=== PATIENT | female | born 1985 | race Caucasian/White ===

== ENCOUNTER 2017-01-10 15:03 | Emergency (ER) | payer MEDICAID ==
[~2017-01-10] VITALS: Ht 139.7 cm; Wt 54.4 kg
[~2017-01-10 15:03] MED LIST: ACHD5005 PO; CEPH500C PO; DCS100C PO; DOCU100C37 PO; FERR-57 PO; IBP800T PO; IBUP-1780 PO; OXYC-12 PO; OXYC-465 PO; PREN1TAB39 PO
[2017-01-10] MEDS ORDERED: TRAM50TA2 PO (15:17)
[2017-01-10] MEDS ORDERED: LIDOCAINE 1% INJ 20 ML (XYLOCAINE) VIAL ONE (16:06)
[2017-01-10] MEDS ORDERED: LIDOCAINE 1% INJ 20 ML (XYLOCAINE) VIAL INJ STA (16:11)
[2017-01-10] MEDS ORDERED: AMOX-358 PO (17:17)
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
[2017-01-10 17:43] VITALS: BP 142/102
--- OUTSIDE RECORDS SUMMARY | 2017-01-10 21:17 | XMS REPORT ---
Author Author LEAH AVILA [facility] Address [address] [place] [address] Care Team Providers Care Insurance Compliance Analyst Name Role Phone [place] LEAH Unavailable PROBLEMS Type Condition ICD9-CM Code [id number] Code Onset Dates Condition Status SNOMED Code Problem Other chronic pain G89.29 Active 93347582 Problem Lumbago with sciatica, right side M54.41 Active 650017958 Problem Normal in multigravida in third trimester Z34.83 Active 12733812 ALLERGIES Substance Reaction Event Type Date Status Latex Unknown Drug Allergy Mar, Active SOCIAL HISTORY No smoking Hx information available PLAN OF CARE VITAL SIGNS Height 55 in 2016-04-06 Weight 111.5 lbs 2016-04-06 Temperature 98.8 degrees Fahrenheit 2016-04-06 Heart Rate 84 bpm 2016-04-06 Respiratory Rate 20 2016-04-06 BMI 25.91 kg/m2 2016-04-06 Blood pressure systolic 130 mmHg 2016-04-06 Blood pressure diastolic 90 mmHg 2016-04-06 MEDICATIONS Medication Instructions Dosage Frequency Start Date End Date Duration Status Naproxen 500 MG Orally Twice a day 1 tablet 12h Mar, Apr, 30 day(s) Active Ferrous Sulfate 325 (65 Fe) MG Orally Once a day 1 tablet 24h Active [place] 5-325 MG Orally 3 times a day 1 tablet as needed 8h Mar, Active RESULTS No Results PROCEDURES Procedure Date Ordered Related Diagnosis Body Site Office Visit, Est Pt., Level 3 Apr 06, 2016 IMMUNIZATIONS No Known Immunizations
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
--- OUTSIDE RECORDS SUMMARY | 2017-01-10 21:17 | XMS REPORT ---
Author Author CHRISTIANO MCCLAIN [facility] Address [address] [place] [address] Care Team Providers Care Forest Fire Officer Name Role Phone CHRISTIANO MCCLAIN Unavailable PROBLEMS Type Condition ICD9-CM Code [id number] Code Onset Dates Condition Status SNOMED Code Problem Other chronic pain G89.29 Active 03528950 Problem Lumbago with sciatica, right side M54.41 Active 731295324 Problem Normal in multigravida in third trimester Z34.83 Active 02934696 ALLERGIES Substance Reaction Event Type Date Status Latex Unknown Drug Allergy Feb, Active SOCIAL HISTORY No smoking Hx information available PLAN OF CARE Activity Details Follow Up prn Reason: VITAL SIGNS Height 55 in 2016-03-23 Weight 108.6 lbs 2016-03-23 Temperature 98.4 degrees Fahrenheit 2016-03-23 Heart Rate 84 bpm 2016-03-23 Respiratory Rate 18 2016-03-23 BMI 25.24 kg/m2 2016-03-23 Blood pressure systolic 124 mmHg 2016-03-23 Blood pressure diastolic 76 mmHg 2016-03-23 MEDICATIONS Medication Instructions Dosage Frequency Start Date End Date Duration Status Vitamin 27-0.8 MG Active Hydrocodone-Acetaminophen 5-325 MG Orally every 6 hrs 1 tablet as needed 6h Feb, Mar, 7 days Active PredniSONE 50 MG Orally Once a day 1 tablet 24h Feb, Mar, 5 days Active RESULTS No Results PROCEDURES Procedure Date Ordered Related Diagnosis Body Site Office Visit, Est Pt., Level 3 Mar 23, 2016 IMMUNIZATIONS No Known Immunizations
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
--- OUTSIDE RECORDS SUMMARY | 2017-01-10 21:17 | XMS REPORT ---
Author Author LEAH AVILA [facility] Address [address] [place] [address] Care Team Providers Care Log Buyer Name Role Phone LEAH AVILA Unavailable PROBLEMS Type Condition ICD9-CM Code [id number] Code Onset Dates Condition Status SNOMED Code Problem Other chronic pain G89.29 Active 13235565 Problem Lumbago with sciatica, right side M54.41 Active 116990384 Problem Normal in multigravida in third trimester Z34.83 Active 59075081 ALLERGIES No Information SOCIAL HISTORY Never Assessed PLAN OF CARE VITAL SIGNS MEDICATIONS Medication Instructions Dosage Frequency Start Date End Date Duration Status [place] 5-325 MG Orally 3 times a day 1 tablet as needed 8h 13 Apr, 2016 Active RESULTS No Results PROCEDURES No Known procedures IMMUNIZATIONS No Known Immunizations MEDICAL (GENERAL) HISTORY Type Description Date Medical History chronic pain-low back Medical History carpal tunnel Medical History chronic R hip pain Surgical History section x3 Surgical History ovarian cysts removal Hospitalization History child
--- OUTSIDE RECORDS SUMMARY | 2017-01-10 21:17 | XMS REPORT ---
Author Author LEAH AVILA [facility] Address [address] [place] [address] Care Team Providers Care Manager Risk Name Role Phone LEAH AVILA Unavailable PROBLEMS Type Condition ICD9-CM Code [id number] Code Onset Dates Condition Status SNOMED Code Problem Other chronic pain G89.29 Active 33813335 Problem Lumbago with sciatica, right side M54.41 Active 931384428 Problem Normal in multigravida in third trimester Z34.83 Active 87329207 ALLERGIES No Information SOCIAL HISTORY Never Assessed PLAN OF CARE VITAL SIGNS MEDICATIONS Medication Instructions Dosage Frequency Start Date End Date Duration Status [place] 5-325 MG Orally 3 times a day 1 tablet as needed 8h May, Active RESULTS No Results PROCEDURES No Known procedures IMMUNIZATIONS No Known Immunizations MEDICAL (GENERAL) HISTORY Type Description Date Medical History chronic pain-low back Medical History carpal tunnel Medical History chronic R hip pain Surgical History section x3 Surgical History ovarian cysts removal Hospitalization History child
--- OUTSIDE RECORDS SUMMARY | 2017-01-10 21:17 | XMS REPORT ---
Author DONNY Keen [facility] [employer] Address Unknown Phone Unavailable Care Team Providers Care Extension Service Specialist Name Role Phone DONNY MURDOCK CP Unavailable Allergies No Known Allergies Problems Problem Type Condition Code Onset Dates Condition Status Assessment Encounter for immunization Z23 Active Problem Normal in multigravida in second trimester Z34.82 Active Problem S/P repeat low transverse Z98.89 Active Problem Normal in multigravida in third trimester Z34.83 Active Assessment 30 weeks gestation of Z3A.30 Active Assessment Dorsalgia, unspecified M54.9 Active Problem Smoking (tobacco) complicating , second trimester O99.332 Active Assessment Normal in multigravida in third trimester Z34.83 Active Medications Medication Code System Code Instructions Start Date End Date Status Dosage Vitamin [facility] [address]5464-85911 27-0.8 MG Orally not defined Hydrocodone-Acetaminophen [facility] [address]-25 5-325 MG Orally three times per week as needed pain. Must last 30 days September 12, 2015 1 tablet Ferrous Sulfate [facility] [address]-19 325 (65 Fe) MG Orally Once a day 1 tablet Procedures Procedure Coding System Code Date Office Visit, Est Pt., Level 3 CPT-4 92973 Oct 31, 2015 TDAP (BOOSTRIX) CPT-4 79207 Oct 31, 2015 URINE-NO MICRO CPT-4 94592 Oct 31, 2015 SINGLE IMMUNIZATION ADMIN CPT-4 60373 Oct 31, 2015 Vital Signs Date/Time: Oct 31, 2015 Cardiac Monitoring Heart Rate 82 bpm Weight 110.3 lbs Height 55 in BMI 25.636 Index Blood Pressure Diastolic 69 mmHg Blood Pressure Systolic 135 mmHg Results No Known Results Immunizations Vaccine Administration Date TDAP (BOOSTRIX) Oct 31, 2015 Summary Purpose [employer] Submission
--- OUTSIDE RECORDS SUMMARY | 2017-01-10 21:18 | XMS REPORT ---
Author Author DONNY MURDOCK [employer] Address Unknown Phone Unavailable Care Team Providers Care Tattoo Designer Name Role Phone DONNY MURDOCK CP Unavailable Allergies, Adverse Reactions, Alerts Substance Reaction Event Type Latex Info Not Available Drug Allergy Problems Problem Type Condition Code Onset Dates Condition Status Problem Normal in multigravida in second trimester Z34.82 Active Problem S/P repeat low transverse Z98.89 Active Problem Normal in multigravida in third trimester Z34.83 Active Assessment 37 weeks gestation of Z3A.37 Active Assessment Encounter for immunization Z23 Active Problem Smoking (tobacco) complicating , second trimester O99.332 Active Assessment Normal in multigravida in third trimester Z34.83 Active Medications Medication Code System Code Instructions Start Date End Date Status Dosage Ferrous Sulfate [facility] [address]-67 325 (65 Fe) MG Orally Once a day 1 tablet Vitamin [facility] 56591-10066 27-0.8 MG Orally not defined Procedures Procedure Coding System Code Date Office Visit, Est Pt., Level 3 CPT-4 59040 Dec 19, 2015 FLUARIX QUAD P-FREE 3 AND UP .50 2015 CPT-4 05516 Dec 19, 2015 URINE-NO MICRO CPT-4 71738 Dec 19, 2015 SINGLE IMMUNIZATION ADMIN CPT-4 51722 Dec 19, 2015 Vital Signs Date/Time: Dec 19, 2015 Cardiac Monitoring Heart Rate 90 bpm Weight 112 lbs Height 55 in BMI 26.031 Index Blood Pressure Diastolic 72 mmHg Blood Pressure Systolic 128 mmHg Results No Known Results Immunizations Vaccine Administration Date FLUARIX QUAD P-FREE 3 AND UP .50 2015Dec 19, 2015 Summary Purpose [employer]ClinicalWorks Submission
--- OUTSIDE RECORDS SUMMARY | 2017-01-10 21:18 | XMS REPORT | Continuity of Care Document ---
Author Author [facility] Address Unknown Phone Unavailable Allergies Medications Problems Date Dx Coded Attending Type Code Diagnosis Diagnosed By 10/07/2007 LEAH AVILA APRN V22.0 Pc Normal First 10/07/2007 V22.0 Pc Normal First 10/07/2007 DONNY MURDOCK DO V22.0 Pc Normal First 10/07/2007 LEAH AVILA APRN V22.0 Pc Normal First 10/07/2007 LEAH AVILA APRN V22.0 Pc Normal First 10/07/2007 LEAH AVILA APRN V22.0 Pc Normal First 01/06/2009 LEAH AVILA APRN 553.9 HERNIA WITHOUT MENTION OF OBSTRUCTION OR GANGRENE, OF UNSPECIFIED SITE 01/06/2009 553.9 HERNIA WITHOUT MENTION OF OBSTRUCTION OR GANGRENE, OF UNSPECIFIED SITE 01/06/2009 DONNY MURDOCK DO 553.9 HERNIA WITHOUT MENTION OF OBSTRUCTION OR GANGRENE, OF UNSPECIFIED SITE 01/06/2009 LEAH AVILA APRN 553.9 HERNIA WITHOUT MENTION OF OBSTRUCTION OR GANGRENE, OF UNSPECIFIED SITE 01/06/2009 LEAH AVILA APRN 553.9 HERNIA WITHOUT MENTION OF OBSTRUCTION OR GANGRENE, OF UNSPECIFIED SITE 01/06/2009 LEAH AVILA APRN 553.9 HERNIA WITHOUT MENTION OF OBSTRUCTION OR GANGRENE, OF UNSPECIFIED SITE 09/12/2009 LEAH AVILA APRN 724.5 BACKACHE UNSPECIFIED 09/12/2009 724.5 BACKACHE UNSPECIFIED 09/12/2009 DONNY MURDOCK DO 724.5 BACKACHE UNSPECIFIED 09/12/2009 LEAH AVILA APRN 724.5 BACKACHE UNSPECIFIED 09/12/2009 ELAH AVILA APRN 724.5 BACKACHE UNSPECIFIED 09/12/2009 LEAH AVILA APRN 724.5 BACKACHE UNSPECIFIED 12/19/2009 [employer] INS[employer] ANALYST, LEAH T 724.4 BACK PAIN WITH RADIATION 12/19/2009 724.4 BACK PAIN WITH RADIATION 12/19/2009 MURDOCK DO, DONNY K 724.4 BACK PAIN WITH RADIATION 12/19/2009 LEAH AVILA APRN T 724.4 BACK PAIN WITH RADIATION 12/19/2009 LEAH AVILA APRN T 724.4 BACK PAIN WITH RADIATION 12/19/2009 LEAH AVILA APRN T 724.4 BACK PAIN WITH RADIATION 03/13/2010 LEAH AVILA APRN 784.0 HEADACHE 03/13/2010 784.0 HEADACHE 03/13/2010 MURDOCK DO, DONNY K 784.0 HEADACHE 03/13/2010 LEAH AVILA APRN T 784.0 HEADACHE 03/13/2010 LEAH AVILA APRN 784.0 HEADACHE 03/13/2010 LEAH AVILA APRN 784.0 HEADACHE 06/02/2010 LEAH AVILA APRN 724.2 BACK PAIN, LOWER 06/02/2010 724.2 BACK PAIN, LOWER 06/02/2010 MURDOCK DO, DONNY K 724.2 BACK PAIN, LOWER 06/02/2010 LEAH AVILA APRN 724.2 BACK PAIN, LOWER 06/02/2010 LEAH AVILA APRN T 724.2 BACK PAIN, LOWER 06/02/2010 LEAH AVILA APRN 724.2 BACK PAIN, LOWER 03/30/2011 LEAH AVILA APRN V04.81 FLU DX (3 YRS AND ABOVE, IM) 03/30/2011 LEAH AVILA APRN V22.1 , Normal Other 03/30/2011 V04.81 FLU DX (3 YRS AND ABOVE, IM) 03/30/2011 V22.1 , Normal Other 03/30/2011 MURDOCK DO, DONNY K V04.81 FLU DX (3 YRS AND ABOVE, IM) 03/30/2011 MURDOCK DO, DONNY K V22.1 , NORMAL OTHER 03/30/2011 LEAH AVILA APRN V04.81 FLU DX (3 YRS AND ABOVE, IM) 03/30/2011 LEAH AVILA APRN V22.1 , NORMAL OTHER 03/30/2011 LEAH AVILA APRN V04.81 FLU DX (3 YRS AND ABOVE, IM) 03/30/2011 LEAH AVILA APRN V22.1 , NORMAL OTHER 03/30/2011 LEAH AVILA APRN V04.81 FLU DX (3 YRS AND ABOVE, IM) 03/30/2011 LEAH AVILA APRN V22.1 , Normal Other 04/20/2011 LEAH AVILA APRN 616.10 Vaginitis Vulvovaginitis Unspecified 04/20/2011 LEAH AVILA APRN V74.5 Std Screen 04/20/2011 LEAH AVILA APRN V76.2 Cervical Cancer Screening (pap Smear) 04/20/2011 616.10 Vaginitis Vulvovaginitis Unspecified 04/20/2011 V74.5 Std Screen 04/20/2011 V76.2 Cervical Cancer Screening (pap Smear) 04/20/2011 DONNY MURDOCK DO 616.10 Vaginitis Vulvovaginitis Unspecified 04/20/2011 DONNY MURDOCK DO V74.5 Std Screen 04/20/2011 DONNY MURDOCK DO V76.2 Cervical Cancer Screening (pap Smear) 04/20/2011 LEAH AVILA APRN 616.10 Vaginitis Vulvovaginitis Unspecified 04/20/2011 LEAH AVILA APRN V74.5 Std Screen 04/20/2011 LEAH AVILA APRN V76.2 Cervical Cancer Screening (pap Smear) 04/20/2011 LEAH AVILA APRN 616.10 Vaginitis Vulvovaginitis Unspecified 04/20/2011 LEAH AVILA APRN V74.5 Std Screen 04/20/2011 LEAH AVILA APRN V76.2 Cervical Cancer Screening (pap Smear) 04/20/2011 LEAH AVILA APRN 616.10 Vaginitis Vulvovaginitis Unspecified 04/20/2011 LEAH AVILA APRN V74.5 Std Screen 04/20/2011 LEAH AVILA APRN V76.2 Cervical Cancer Screening (pap Smear) 05/07/2011 LEAH AVILA APRN 654.20 PREVIOUS 05/07/2011 654.20 PREVIOUS 05/07/2011 DONNY MURDOCK DO 654.20 PREVIOUS 05/07/2011 LEAH AVILA APRN 654.20 PREVIOUS 05/07/2011 LEAH AVILA APRN 654.20 PREVIOUS 05/07/2011 LEAH AVILA APRN 654.20 PREVIOUS 07/25/2011 LEAH AVILA APRN 616.10 Vaginitis Vulvovaginitis Unspecified 07/25/2011 LEAH AVILA APRN 788.41 Urinary Frequency 07/25/2011 616.10 Vaginitis Vulvovaginitis Unspecified 07/25/2011 788.41 Urinary Frequency 07/25/2011 MURDOCK DORITUA K 616.10 Vaginitis Vulvovaginitis Unspecified 07/25/2011 MURDOCK DO, DONNY K 788.41 Urinary Frequency 07/25/2011 LEAH AVILA APRN 616.10 Vaginitis Vulvovaginitis Unspecified 07/25/2011 LEAH AVILA APRN 788.41 Urinary Frequency 07/25/2011 LEAH AVILA APRN 616.10 Vaginitis Vulvovaginitis Unspecified 07/25/2011 LEAH AVILA APRN 788.41 Urinary Frequency 07/25/2011 LEAH AVILA APRN 616.10 Vaginitis Vulvovaginitis Unspecified 07/25/2011 LEAH AVILA APRN 788.41 Urinary Frequency 08/27/2011 LEAH AVILA APRN V77.1 Diabetes Screening 08/27/2011 LEAH AVILA APRN V78.0 Anemia Screening 08/27/2011 V77.1 Diabetes Screening 08/27/2011 V78.0 Anemia Screening 08/27/2011 DONNY MURDOCK DO V77.1 Diabetes Screening 08/27/2011 DONNY MURDOCK DO K V78.0 Anemia Screening 08/27/2011 LEAH AVILA APRN V77.1 Diabetes Screening 08/27/2011 LEAH AVILA APRN V78.0 Anemia Screening 08/27/2011 LEAH AVILA APRN V77.1 Diabetes Screening 08/27/2011 LEAH AVILA APRN V78.0 Anemia Screening 08/27/2011 LEAH AVILA APRN V77.1 Diabetes Screening 08/27/2011 LEAH AVILA APRN V78.0 Anemia Screening 09/10/2011 LEAH AVILA APRN 648.20 COMPL OF - ANEMIA 09/10/2011 648.20 COMPL OF - ANEMIA 09/10/2011 MURDOCK DORITUA K 648.20 COMPL OF - ANEMIA 09/10/2011 LEAH AVILA APRN 648.20 COMPL OF - ANEMIA 09/10/2011 LEAH AVILA APRN 648.20 COMPL OF - ANEMIA 09/10/2011 LEAH AVILA APRN 648.20 COMPL OF - ANEMIA 09/18/2011 LEAH AVILA APRN 665.93 UNSPECIFIED OBSTETRICAL TRAUMA ANTEPARTUM 09/18/2011 665.93 UNSPECIFIED OBSTETRICAL TRAUMA ANTEPARTUM 09/18/2011 DONNY MURDOCK DO 665.93 UNSPECIFIED OBSTETRICAL TRAUMA ANTEPARTUM 09/18/2011 LEAH AVILA APRN 665.93 UNSPECIFIED OBSTETRICAL TRAUMA ANTEPARTUM 09/18/2011 LEAH AVILA APRN 665.93 UNSPECIFIED OBSTETRICAL TRAUMA ANTEPARTUM 09/18/2011 LEAH AVILA APRN 665.93 UNSPECIFIED OBSTETRICAL TRAUMA ANTEPARTUM 09/19/2011 LEAH AVILA APRN 310.2 POSTCONCUSSION SYNDROME 09/19/2011 310.2 POSTCONCUSSION SYNDROME 09/19/2011 DONNY MURDOCK DO 310.2 POSTCONCUSSION SYNDROME 09/19/2011 LEAH AVILA APRN 310.2 POSTCONCUSSION SYNDROME 09/19/2011 LEAH AVILA APRN 310.2 POSTCONCUSSION SYNDROME 09/19/2011 LEAH AVILA APRN 310.2 POSTCONCUSSION SYNDROME 07/15/2012 727.49 OTHER GANGLION AND CYST OF SYNOVIUM TENDON AND BURSA 07/15/2012 DONNY MURDOCK DO 727.49 OTHER GANGLION AND CYST OF SYNOVIUM TENDON AND BURSA 07/15/2012 LEAH AVILA APRN 727.49 OTHER GANGLION AND CYST OF SYNOVIUM TENDON AND BURSA 07/15/2012 LEAH AVILA APRN 727.49 OTHER GANGLION AND CYST OF SYNOVIUM TENDON AND BURSA 09/28/2013 LEAH AVILA APRN 354.0 CARPAL TUNNEL SYNDROME 09/28/2013 LEAH AVILA APRN 354.0 CARPAL TUNNEL SYNDROME Procedures Code Description Performed By Performed On Neurology Jamey Copeland 09/28/2013 ORTHOPJEREMIAS SAWYER 09/28/2013 Results Encounters ACCT No. Visit Date/Time Discharge Status Pt. Type Provider Facility Loc./Unit Complaint [id number] 05/07/2014 16:32:00 05/07/2014 23: 59:59 CLS Outpatient LEAH AVILA APRN [id number] 09/28/2013 11:09:00 09/28/2013 23: 59:59 CLS Outpatient LEAH AVILA APRN [id number] 12/29/2012 09:07:00 12/29/2012 23: 59:59 CLS Outpatient COLLETTE DONNY GLASGOW Rui [id number] 02/20/2012 18:06:00 02/20/2012 23: 59:59 CLS Outpatient LEAH AVILA APRN [id number] 12/20/2011 09:34:00 12/20/2011 23:59 :59 CLS Outpatient LEAH AVILA APRN [id number] 07/15/2012 14:13:00 Document Registration
--- OUTSIDE RECORDS SUMMARY | 2017-01-10 21:18 | XMS REPORT ---
Author DONNY Keen [facility] eClinicalWorks Address Unknown Phone Unavailable Care Team Providers Care Ct Scan Tech Name Role Phone DONNY MURDOCK CP Unavailable Allergies No Known Allergies Problems Problem Type Condition Code Onset Dates Condition Status Assessment Other specified related conditions, third trimester O26.893 Active Assessment S/P repeat low transverse Z98.89 Active Problem Normal in multigravida in second trimester Z34.82 Active Problem S/P repeat low transverse Z98.89 Active Problem Normal in multigravida in third trimester Z34.83 Active Assessment Normal in multigravida in third trimester Z34.83 Active Assessment Dorsalgia, unspecified M54.9 Active Problem Smoking (tobacco) complicating , second trimester O99.332 Active Assessment Smoking (tobacco) complicating , second trimester O99.332 Active Medications Medication Code System Code Instructions Start Date End Date Status Dosage Hydrocodone-Acetaminophen [facility] [address]-43 5-325 MG Orally three times per week as needed pain. Must last 30 days September 12, 2015 1 tablet Ferrous Sulfate [facility] [address]-03 325 (65 Fe) MG Orally Once a day 1 tablet Vitamin [facility] 43575-63573 27-0.8 MG Orally not defined Procedures Procedure Coding System Code Date DRUG SCREEN NON TLC DEVICES CPT-4 82619 October 10, 2015 URINE-NO MICRO CPT-4 69051 October 10, 2015 [facility]PT-4 NOBLL October 10, 2015 VENIPUNCT, ROUTINE* CPT-4 30758 October 10, 2015 Office Visit, Est Pt., Level 3 CPT-4 75944 October 10, 2015 Vital Signs Date/Time: October 10, 2015 Blood Pressure Systolic 118 mmHg Weight 111.6 lbs Height 55 in Blood Pressure Diastolic 70 mmHg Results No Known Results Summary Purpose eClinicalWorks Submission
--- OUTSIDE RECORDS SUMMARY | 2017-01-10 21:18 | XMS REPORT ---
Author Author DONNY MURDOCK [facility] Address [address] [place] [address] Care Team Providers Care Entry Level Sales Consultant Name Role Phone DONNY MURDOCK Unavailable PROBLEMS Type Condition ICD9-CM Code [id number] Code Onset Dates Condition Status SNOMED Code Problem Normal in multigravida in third trimester Z34.83 Active 63329718 Problem Normal in multigravida in second trimester Z34.82 Active 86813697 Assessment Normal in multigravida in third trimester Z34.83 Oct, Active 02953748 Assessment 34 weeks gestation of Z3A.34 Oct, Active 75079434 Problem S/P repeat low transverse Z98.89 Active 437960337 Problem Smoking (tobacco) complicating , second trimester O99.332 Active 589733666 ALLERGIES Substance Reaction Event Type Date Status Latex Unknown Drug Allergy Oct, Active SOCIAL HISTORY No smoking Hx information available PLAN OF CARE VITAL SIGNS Height 55 in 2015-11-23 Weight 113.6 lbs 2015-11-23 Heart Rate 84 bpm 2015-11-23 Respiratory Rate 18 2015-11-23 BMI 26.403 kg/m2 2015-11-23 Blood pressure systolic 124 mmHg 2015-11-23 Blood pressure diastolic 76 mmHg 2015-11-23 MEDICATIONS Medication Instructions Dosage Frequency Start Date End Date Duration Status Ferrous Sulfate 325 (65 Fe) MG Orally Once a day 1 tablet 24h Active Vitamin 27-0.8 MG Active Hydrocodone-Acetaminophen 5-325 MG Orally three times per week as needed pain. Must last 30 days 1 tablet Aug, Active RESULTS Name Result Date Reference Range UA OB DIP (IN HOUSE) 2015-11-23 Glucose negative Protein negative PROCEDURES Procedure Date Ordered Related Diagnosis Body Site URINE-NO MICRO Nov 23, 2015 Office Visit, Est Pt., Level 3 Nov 23, 2015 IMMUNIZATIONS No Known Immunizations
--- OUTSIDE RECORDS SUMMARY | 2017-01-10 21:18 | XMS REPORT ---
Author LEAH Lewis [facility] e[employer] Address Unknown Phone Unavailable Care Team Providers Care Entry Level Account Executive Name Role Phone LEAH AVILA CP Unavailable [...]
--- OUTSIDE RECORDS SUMMARY | 2017-01-10 21:18 | XMS REPORT ---
Author Author DONNY MURDOCK [facility] Address [address] [place] [address] Care Team Providers Care Head Of Geography Name Role Phone DONNY MURDOCK Unavailable PROBLEMS Type Condition ICD9-CM Code [id number] Code Onset Dates Condition Status SNOMED Code Problem Normal in multigravida in third trimester Z34.83 Active 60410531 Problem Normal in multigravida in second trimester Z34.82 Active 31830834 Problem S/P repeat low transverse Z98.89 Active 957308777 Problem Smoking (tobacco) complicating , second trimester O99.332 Active 554293065 ALLERGIES No Known Allergies SOCIAL HISTORY No smoking Hx information available PLAN OF CARE VITAL SIGNS MEDICATIONS Unknown Medications RESULTS No Results PROCEDURES No Known procedures IMMUNIZATIONS No Known Immunizations
--- OUTSIDE RECORDS SUMMARY | 2017-01-10 21:18 | XMS REPORT ---
Author LEAH Lewis Organization [employer] Address Unknown Phone Unavailable Care Team Providers Care Digital Program Manager Name Role Phone LEAH AVILA CP Unavailable Allergies No Known Allergies Problems Problem Type Condition ICD-9 Code Onset Dates Condition Status Problem Other [...] Status Dosage tramadol NDC 0 50 mg MUST KEEP 10/06/14 appt for further refills June 02, 2014 take 1 tablet by Oral route every 4 hours as needed PRN Results No Known Results Summary Purpose eClinicalWorks Submission
== END 2017-01-10 17:43 | disposition home or self-care (01) ==
LOC: EDUNIT# 15:03 → ER 15:06
DX: K12.2 Cellulitis and abscess of mouth (principal); F17.210 Nicotine dependence, cigarettes, uncomplicated; Z87.59 Personal history of other complications of pregnancy, childbirth and the puerperium
CPT/HCPCS: 99282

== ENCOUNTER 2020-01-18 14:08 | Emergency (ER) | payer SELFPAY ==
[~2020-01-18] VITALS: Ht 121.9 cm; Wt 56.9 kg
[~2020-01-18 14:08] MED LIST changes: +AMOX-358 PO; -OXYC-465 PO; +OXYC-556 PO; +TRM50T PO
[2020-01-18 14:10] VITALS: BP 180/110
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
== END 2020-01-18 14:48 | disposition home or self-care (01) ==
LOC: EDUNIT# 14:08 → ER 14:11
DX: S60.445A External constriction of left ring finger, initial encounter (principal); I87.1 Compression of vein; F17.210 Nicotine dependence, cigarettes, uncomplicated; Z91.040 Latex allergy status; Z82.49 Family history of ischemic heart disease and other diseases of the circulatory system; W49.04XA Ring or other jewelry causing external constriction, initial encounter; W19.XXXA Unspecified fall, initial encounter
CPT/HCPCS: 99282

== ENCOUNTER 2021-07-08 15:27 | Emergency (ER) | payer SELFPAY ==
[~2021-07-08] VITALS: Ht 142 cm; Wt 55.0 kg
[2021-07-08] MEDS ORDERED: CLINDAMYCIN 600 MG/4ML (CLEOCIN) VIAL IM ONE (17:30)
[2021-07-08] MEDS ORDERED: AMOX500C2 PO (17:42)
[2021-07-08] MEDS ORDERED: SULF1TAB38 PO (17:42)
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
[2021-07-08 18:09] VITALS: BP 145/98
== END 2021-07-08 18:08 | disposition home or self-care (01) ==
LOC: EDUNIT# 15:27 → ER 15:29
DX: K04.7 Periapical abscess without sinus (principal); F17.210 Nicotine dependence, cigarettes, uncomplicated
CPT/HCPCS: 87070; 87205; 99284

== ENCOUNTER 2022-03-02 16:16 | Emergency (ER) | payer SELFPAY ==
[~2022-03-02] VITALS: Ht 160 cm; Wt 74.8 kg
[~2022-03-02 16:16] MED LIST changes: +AMOX500C2 PO; +SULF1TAB38 PO
[2022-03-02 16:20] VITALS: BP 155/91
[2022-03-02] MEDS ORDERED: CLIN150C20 PO (16:32)
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
== END 2022-03-02 16:37 | disposition home or self-care (01) ==
LOC: EDUNIT# 16:16 → ER 16:18
DX: K02.9 Dental caries, unspecified (principal); K04.7 Periapical abscess without sinus; F17.210 Nicotine dependence, cigarettes, uncomplicated; Z91.040 Latex allergy status; Z28.310 Unvaccinated for COVID-19
CPT/HCPCS: 99282

== ENCOUNTER 2022-03-05 13:35 | Emergency (ER) | payer SELFPAY ==
[~2022-03-05] VITALS: Ht 145 cm; Wt 58.9 kg
[~2022-03-05 13:35] MED LIST changes: +CLIN150C20 PO
[2022-03-05 13:39] VITALS: BP 161/86
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
== END 2022-03-05 15:20 | disposition home or self-care (01) ==
LOC: EDUNIT# 13:35 → ER 13:37
DX: K04.7 Periapical abscess without sinus (principal); Z91.040 Latex allergy status
CPT/HCPCS: 99281